=== PATIENT | female | born 1980 | race Caucasian/White ===

== ENCOUNTER 2017-11-03 07:57 | Emergency (ER) | payer SELFPAY ==
[2017-11-03] MEDS ORDERED: Ketorolac Tromethamine 30 MG/ML VIAL ONE (08:25)
[2017-11-03] MEDS ORDERED: Ondansetron HCl/PF 4 MG/2 ML Vial ONE (08:25)
[2017-11-03] MEDS ORDERED: Famotidine In NaCl 20 mg/50 ml Premix Bag ONE (08:25)
[2017-11-03 08:51] LABS: #Basophils 0.1 thou/uL (0.0-0.2); #Eosinphils 0.1 thou/uL (0.0-0.7); #Lymphocytes 2.2 thou/uL (1.20-3.40); #Monocytes 0.8 thou/uL (0.11-0.59); #Neutrophils 11.5 thou/uL (1.40-6.50); %Basophils 0.6 % (0.0-1.0); %Eosinophils 0.5 % (0.0-10.0); %Lymphocytes 14.8 % (21.0-51.0); %Monocytes 5.5 % (0.0-10.0); %Neutrophils 78.7 % (42.0-75.0); Hemoglobin 13.8 g/dL (12.0-16.0); Mean Corpuscular HGB CONC 33.6 g/dL (32.0-36.0); Mean Corpuscular Hemoglobin 30.2 pg (27.0-31.0); Mean Platelet Volume 8.7 fL (7.4-10.4); Platelet Count 238 thou/uL (130-400); RBC Distribution Width 12.1 % (11.5-14.5); Red Blood Cell (RBC) Count 4.57 mill/uL (4.20-5.40); White Blood Cell (WBC) Count 14.6 thou/uL (4.8-10.8)
[2017-11-03 08:58] LABS: ALT (SGPT) 16 U/L (8-55); AST (SGOT) 17 U/L (5-34); Albumin 4.6 g/dL (3.5-5.0); Alkaline Phosphatase 58 U/L (40-150); Anion Gap 15 mmol/L (10-20); BUN (Urea Nitrogen) 14 mg/dL (7.0-18.7); Bilirubin, Total 0.6 mg/dL (0.2-1.2); Calc. Creatinine Clearance 0 mL/min (70-130); Calcium 9.4 mg/dL (7.8-10.44); Carbon Dioxide 20 mmol/L (22-29); Chloride 108 mmol/L (98-107); Estimated GFR-MDRD 87; Globulin 3.1 g/dL (2.4-3.5); Glucose 91 mg/dL (70-105); Lipase 26 U/L (8-78); Potassium 3.8 mmol/L (3.5-5.1); Protein, Total 7.7 g/dL (6.0-8.3); Sodium 139 mmol/L (136-145)
[2017-11-03 09:02] LABS: CKMB 1.8 ng/mL (0-6.6); Troponin I 0.013 ng/mL (< 0.028)
[2017-11-03] MEDS ORDERED: Pantoprazole 40 MG VIAL ONE (09:13)
--- NOTE | 2017-11-03 20:25 | RAD ---
PORTABLE CHEST 11/03/17 An AP portable film at 0822 shows a normal sized heart and clear lungs. No infiltrate or effusion was seen. There is no vascular congestion or edema. The trachea is midline. There is no sign of pneumoth orax. IMPRESSION: No acute thoracic finding. POS: HOME
== END 2017-11-03 09:41 | disposition home or self-care (01) ==
LOC: BURERS 07:57
DX: K29.00 Acute gastritis without bleeding (principal); F17.210 Nicotine dependence, cigarettes, uncomplicated
CPT/HCPCS: 71045; 80053; 82553; 83690; 84484; 85025; 96365; 96375; C9113; J1885; J2405

== ENCOUNTER 2017-11-03 20:44 | Emergency (ER) | payer SELFPAY ==
[2017-11-03] MEDS ORDERED: Mag-Al Plus 1200 MG/1200 MG/120 MG/30 ML UDCUP ONE (21:20)
[2017-11-03] MEDS ORDERED: Lidocaine Viscous Sol 2% 15 ml UD Cup ONE (21:20)
[2017-11-03] MEDS ORDERED: Pantoprazole 40 MG VIAL ONE (21:28)
[2017-11-03 21:31] LABS: #Basophils 0.1 thou/uL (0.0-0.2); #Eosinphils 0.1 thou/uL (0.0-0.7); #Lymphocytes 1.5 thou/uL (1.20-3.40); #Monocytes 1.2 thou/uL (0.11-0.59); #Neutrophils 11.5 thou/uL (1.40-6.50); %Basophils 0.6 % (0.0-1.0); %Eosinophils 0.6 % (0.0-10.0); %Lymphocytes 10.7 % (21.0-51.0); %Monocytes 8.2 % (0.0-10.0); Hemoglobin 13.3 g/dL (12.0-16.0); Mean Corpuscular HGB CONC 36.4 g/dL (32.0-36.0); Mean Corpuscular Hemoglobin 32.5 pg (27.0-31.0); Mean Corpuscular Volume 89.3 fl (81.0-99.0); Mean Platelet Volume 8.4 fL (7.4-10.4); Platelet Count 202 thou/uL (130-400); RBC Distribution Width 12.4 % (11.5-14.5); Red Blood Cell (RBC) Count 4.08 mill/uL (4.20-5.40); White Blood Cell (WBC) Count 14.3 thou/uL (4.8-10.8)
[2017-11-03 22:11] LABS: BHCG - Serum Negative (NEGATIVE); Pregs Control Background? CLEAR/WHITE (CLR/WHITE); Pregs Control Bar Appear? YES (CONTROL BAR)
[2017-11-03 22:13] LABS: ALT (SGPT) 16 U/L (8-55); AST (SGOT) 16 U/L (5-34); Albumin 4.1 g/dL (3.5-5.0); Alkaline Phosphatase 58 U/L (40-150); Anion Gap 15 mmol/L (10-20); BUN (Urea Nitrogen) 11 mg/dL (7.0-18.7); Bilirubin, Total 0.8 mg/dL (0.2-1.2); Calc. Creatinine Clearance 0 mL/min (70-130); Calcium 8.9 mg/dL (7.8-10.44); Carbon Dioxide 19 mmol/L (22-29); Chloride 108 mmol/L (98-107); Estimated GFR-MDRD Greater than 90; Globulin 2.6 g/dL (2.4-3.5); Glucose 107 mg/dL (70-105); Lipase 19 U/L (8-78); Protein, Total 6.7 g/dL (6.0-8.3); Sodium 138 mmol/L (136-145)
[2017-11-03] MEDS ORDERED: Sucralfate 1 GM TAB PO SCH (22:30)
[2017-11-03] MEDS ORDERED: Fentanyl 100 MCG/2 ML VIAL ONE (23:00)
[2017-11-03] MEDS ORDERED: Ampicillin/Sulbactam 1.5 GM VIAL ONE (23:00)
--- NOTE | 2017-11-04 07:19 | CT ---
PRELIMINARY REPORT/[facility]/EMERGENCY AFTER HOURS PROCEDURE: EXAM: CT Abdomen and Pelvis With Intravenous Contrast CLINICAL HISTORY: 36 years old, female; Pain; Abdominal pain; Generalized; Patient HX: General abd pain TECHNIQUE: Axial computed tomography images of the abdomen and pelvis with intravenous contrast. All CT scans at this facility use one or more dose reduction techniques, viz.: automated exposure control; ma/kV adj ustment per patient size (including targeted exams where dose is matched to indication; i.e. head); o r iterative reconstruction technique. COMPARISON: No relevant prior studies available. FINDINGS: Lower thorax: No acute findings. ABDOMEN: Liver: Gallbladder wall thickening with pericholecystic edema. The gallbladder is distended without r adiopaque stones. Trace intrahepatic ductal dilatation. Minimal extrahepatic biliary ductal dilatatio n. Gallbladder and bile ducts: See above. Pancreas: Unremarkable. No mass. No ductal dilation. Spleen: Unremarkable. No splenomegaly. Adrenals: Unremarkable. No mass. Kidneys and ureters: 2 mm RIGHT renal stone. No hydronephrosis. Stomach and bowel: Unremarkable. No obstruction. No mucosal thickening. Appendix: No findings to suggest acute appendicitis. PELVIS: Bladder: Unremarkable. No mass. Reproductive: IUD in the uterus. ABDOMEN and PELVIS: Intraperitoneal space: Trace free fluid in the pelvis. No free air. Bones/joints: No acute fracture. No dislocation. Soft tissues: Unremarkable. Vasculature: Unremarkable. No abdominal aortic aneurysm. Lymph nodes: Unremarkable. No enlarged lymph nodes. IMPRESSION: CT findings suggestive of acute cholecystitis. This could be further characterize with RIGHT upper qu adrant ultrasound. Thank you for allowing us to participate in the care of your patient. Dictated and Authenticated by: Isiah Friedman MD 11/03/2017 10:34 PM Central Time ([place] & [place]) FINAL REPORT CT ABDOMEN AND PELVIS WITH CONTRAST: Date: 11/03/[address] of the abdomen and pelvis was performed for evaluation of right upper quadrant pain. Axial slices were acquired after giving IV contrast. Oral contrast was withheld by request. Coronal and sag ittal reconstructions were subsequently done. FINDINGS: The lung bases are clear. The major finding on this study is a large gallbladder with wall thickening and pericholecystic fluid. While I do not see gallstones internally, ultrasound would be much more s ensitive at showing them. The findings are suggestive of acute cholecystitis. There is some mild dila tion of the common bile duct (8-9 mm). There is a trace of intrahepatic ductal dilation, but the maria d leon of the liver appears normal. The spleen, pancreas, adrenal glands, kidneys, and aorta all appea r normal. The bowel is nondistended. There is no sign of bowel wall thickening or inflammatory change. No free air seen. CT Of the pelvis shows no pelvic masses. There is a moderate amount of free fluid in the cul-de-sac. There might be a cystic area in the right ovary. Ultrasound would be more sensitive at showing this. The patient has an IUD in place. Another incidental finding not listed above is a small, nonobstructing calculus in the right kidney. IMPRESSION: 1. Findings consistent with acute cholecystitis. 2. Possible cyst in right ovary. An elective pelvic ultrasound would be helpful. 3. 2-3 mm nonobstructing stone in right kidney. Report in agreement with preliminary reading by Charlie. POS: HOME
== END 2017-11-03 22:57 | disposition short-term general hospital (02) ==
LOC: BURERS 20:44
DX: K81.0 Acute cholecystitis (principal); F17.210 Nicotine dependence, cigarettes, uncomplicated
CPT/HCPCS: 36415; 74177; 83690; 84703; 87070; 87077; 87205; 94760; 96365; 96372; 96375; C9113; J0295; J3010